=== PATIENT | female | born 1965 | race Caucasian/White ===

== ENCOUNTER 2023-03-09 16:22 | Emergency (ER) | payer MEDICARE ==
[~2023-03-09] VITALS: Ht 170.2 cm; Wt 75.7 kg
[2023-03-09 17:15] VITALS: BP 128/82
[2023-03-09 17:30] VITALS: BP 137/75
[2023-03-09 18:00] VITALS: BP 132/75
[2023-03-09 18:38] VITALS: BP 132/75
[2023-03-09] MEDS ORDERED: BACTRIM DS1 TAB PO (18:40)
== END 2023-03-09 18:42 | disposition home or self-care (01) ==
LOC: ED 16:22
DX: L02.11 Cutaneous abscess of neck (principal); J44.9 Chronic obstructive pulmonary disease, unspecified

== ENCOUNTER 2023-06-28 02:55 | Emergency (ER) | payer MEDICARE, MEDICAID ==
[~2023-06-28] VITALS: Ht 170.2 cm; Wt 77.0 kg
[~2023-06-28 02:55] MED LIST: BACTRIM DS1 TAB PO
[2023-06-28 04:09] VITALS: BP 109/76
== END 2023-06-28 04:26 | disposition home or self-care (01) ==
LOC: ED 02:55
DX: J06.9 Acute upper respiratory infection, unspecified (principal); J44.9 Chronic obstructive pulmonary disease, unspecified; Z95.5 Presence of coronary angioplasty implant and graft; Z20.822 Contact with and (suspected) exposure to COVID-19

== ENCOUNTER 2023-09-11 20:12 | Emergency (ER) | payer MEDICARE, MEDICAID ==
[~2023-09-11] VITALS: Ht 170.2 cm; Wt 95.0 kg
[~2023-09-11 20:12] MED LIST changes: +CITALOPRAM20 MG PO; +DOXEPIN HCL50 MG PO; +HUMALOG100 MG/ML; +LISINOPRIL40 MG PO; +METOPROLOL SUCC50 MG PO; +NEURONTIN600 MG PO; +SIMVASTATIN40 MG PO; +SM ASPIRIN325 M1 PO; +VENTOLIN HFA108 MCG; +VICTOZA18 MG/3 ML SC
[2023-09-11 21:06] LABS: BASO% 0.2 % (0-3); EOS% 0.5 % (0-8); HEMATOCRIT 41.4 % (37.0-47.0); HEMOGLOBIN 14.2 g/dl (12.0-16.0); IMMATURE GRANULOCYTES 0.2 % (0.0-5.0); LYMPH% 34.1 % (15-41); MEAN CELL VOLUME 88.7 fL CALC (80.0-100.0); MEAN CORPUSCULAR HGB 30.4 pG CALC (26.0-32.0); MEAN CORPUSCULAR HGB CONC 34.3 g/dL CAL (32.0-36.0); MONO% 3.4 % (2-13); NEUT# 5.62 thou/uL (2.00-7.15); NEUT% 61.6 % (42-76); RED BLOOD COUNT 4.67 mill/uL (4.20-5.60); RED CELL DISTRI WIDTH 11.7 % (11.5-15.5)
[2023-09-11 21:34] LABS: ALBUMIN 4.3 g/dL (3.2-5.0); ALKALINE PHOSPHATASE 290 u/l (38-126); ANION GAP 20 (6-22 (CALC)); BILIRUBIN, TOTAL 0.4 mg/dL (0.02-1.3); BUN 32 mg/dL (7-17); BUN/CREATININE RATIO 28 (12-20 (CALC)); CARBON DIOXIDE 20 mmol/l (22-30); CHLORIDE 93 mmol/l (95-108); CREATININE 1.1 mg/dL (0.5-1.0); GFR FOR AFR.AMER. > 60 ML/MIN (>=60 (CALC)); GFR OTHER RACES 51 ML/MIN (>=60 (CALC)); SGOT/AST 61 u/l (14-36); SODIUM 130 mmol/l (137-146); TOTAL PROTEIN 8.1 g/dL (6.3-8.2)
[2023-09-11 22:04] VITALS: BP 137/80
[2023-09-11 22:58] VITALS: BP 137/80
== END 2023-09-11 22:58 | disposition home or self-care (01) ==
LOC: ED 20:12
PROVIDERS: Family Medicine
DX: J44.0 Chronic obstructive pulmonary disease with (acute) lower respiratory infection (principal); E11.65 Type 2 diabetes mellitus with hyperglycemia; Z95.5 Presence of coronary angioplasty implant and graft; Z79.4 Long term (current) use of insulin; Z20.822 Contact with and (suspected) exposure to COVID-19

== ENCOUNTER 2023-12-19 22:08 | Emergency (ER) | payer MEDICARE, MEDICAID ==
[~2023-12-19] VITALS: Ht 170.2 cm; Wt 98.0 kg
[2023-12-19] VITALS (7 sets, daily range): BP systolic 82–114; BP diastolic 45–76
[2023-12-19] MEDS ORDERED: DICLOFENAC SODIUM 75 MG/TAB PO ONE (22:35)
[2023-12-19] MEDS ORDERED: traMADol HCL 50 MG/TAB PO ONE (22:35)
[2023-12-19 23:13] LABS: BASO% 0.4 % (0-3); HEMATOCRIT 38.8 % (37.0-47.0); HEMOGLOBIN 13.1 g/dl (12.0-16.0); IMMATURE GRANULOCYTES 0.4 % (0.0-5.0); MEAN CELL VOLUME 89.2 fL CALC (80.0-100.0); MEAN CORPUSCULAR HGB 30.1 pG CALC (26.0-32.0); MEAN CORPUSCULAR HGB CONC 33.8 g/dL CAL (32.0-36.0); MONO% 5.4 % (2-13); NEUT# 5.57 thou/uL (2.00-7.15); NEUT% 53.8 % (42-76); RED BLOOD COUNT 4.35 mill/uL (4.20-5.60); RED CELL DISTRI WIDTH 11.9 % (11.5-15.5)
[2023-12-19 23:28] LABS: ALBUMIN 4.4 g/dL (3.2-5.0); ALKALINE PHOSPHATASE 292 u/l (38-126); ANION GAP 14 (6-22 (CALC)); BILIRUBIN, TOTAL 0.6 mg/dL (0.02-1.3); BUN 16 mg/dL (7-17); BUN/CREATININE RATIO 15 (12-20 (CALC)); CARBON DIOXIDE 23 mmol/l (22-30); CHLORIDE 100 mmol/l (95-108); GFR FOR AFR.AMER. > 60 ML/MIN (>=60 (CALC)); GFR OTHER RACES 57 ML/MIN (>=60 (CALC)); POTASSIUM 3.8 mmol/l (3.5-5.1); SGOT/AST 225 u/l (14-36); SODIUM 134 mmol/l (137-146); TOTAL PROTEIN 7.6 g/dL (6.3-8.2)
[2023-12-20] VITALS: BP 79/49
[2023-12-20 00:04] VITALS: BP 82/50
[2023-12-20 00:06] VITALS: BP 85/52
[2023-12-20] MEDS ORDERED: TRAMADOL HCL50 MG PO (00:10)
[2023-12-20 00:24] VITALS: BP 85/52
== END 2023-12-20 00:45 | disposition home or self-care (01) ==
LOC: ED 22:08
PROVIDERS: Family Medicine
DX: M25.562 Pain in left knee (principal); M25.561 Pain in right knee; M25.552 Pain in left hip; M25.551 Pain in right hip; E11.65 Type 2 diabetes mellitus with hyperglycemia; J44.9 Chronic obstructive pulmonary disease, unspecified; I25.10 Atherosclerotic heart disease of native coronary artery without angina pectoris; F41.9 Anxiety disorder, unspecified; Z95.5 Presence of coronary angioplasty implant and graft; Z79.4 Long term (current) use of insulin; Z96.652 Presence of left artificial knee joint; Z20.822 Contact with and (suspected) exposure to COVID-19

== ENCOUNTER 2024-06-21 00:24 | Emergency (ER) | payer MEDICARE, MEDICAID ==
[~2024-06-21] VITALS: Ht 170.2 cm; Wt 86.3 kg
[2024-06-21] VITALS (11 sets, daily range): BP systolic 112–145; BP diastolic 56–80
[~2024-06-21 00:24] MED LIST changes: +ACETAMINOPHEN325 MG PO; +B-COMPLE6 PO; +BIOTIN MAXI10000 MCG PO; +COLLAGE2 PO; +D350 MCG PO; +HAIR/SKIN/NAILS1 CAP PO; +HUMULIN R500 UNIT/M IM; +KLONOPIN1 MG PO; +LEXAPRO20 MG PO; +MAGNESIUM500 M1 PO; +MELATONIN10 M1 PO; +METRONIDAZOLE500 MG PO; +MUPIROCIN2 % EX; +NITROSTAT0.4 MG SL; +OMNICEF300 MG PO; +ONDANSETRON4 MG PO; +OZEMPIC 8 MG/3M1 INJ IM; +PROTONIX40 M2 PO; +QUETIAPINE FUM400 MG PO; +SEROQUEL100 MG PO; +TRAMADOL HCL50 MG PO; +ZINC50 MG PO
[2024-06-21] MEDS ORDERED: KETOROLAC TROMETHAMINE 30 MG/ML SDV IM ONE (00:40)
[2024-06-21] MEDS ORDERED: oxyCODONE HCL 15 MG/TAB PO ONE (00:40)
== END 2024-06-21 03:00 | disposition home or self-care (01) ==
LOC: ED 00:24
DX: S70.01XA Contusion of right hip, initial encounter (principal); S86.911A Strain of unspecified muscle(s) and tendon(s) at lower leg level, right leg, initial encounter; E11.9 Type 2 diabetes mellitus without complications; J44.9 Chronic obstructive pulmonary disease, unspecified; G47.33 Obstructive sleep apnea (adult) (pediatric); E66.9 Obesity, unspecified; F41.9 Anxiety disorder, unspecified; I25.10 Atherosclerotic heart disease of native coronary artery without angina pectoris; W19.XXXA Unspecified fall, initial encounter; Z79.4 Long term (current) use of insulin; Z88.8 Allergy status to other drugs, medicaments and biological substances; Z79.85 Long-term (current) use of injectable non-insulin antidiabetic drugs; Z95.5 Presence of coronary angioplasty implant and graft; Z96.641 Presence of right artificial hip joint

== ENCOUNTER 2024-06-22 13:41 | Observation (INO) | payer MEDICARE, MEDICAID ==
[~2024-06-22] VITALS: Ht 170.2 cm; Wt 98.4 kg
[2024-06-22] VITALS (45 sets, daily range): BP systolic 78–132; BP diastolic 28–85
[~2024-06-22 13:41] MED LIST changes: +LIDOCAINE HCL 2% 2ML SDV IV ONE; +PROPOFOL 200 MG/20 ML VIAL IV ONE
[2024-06-22] MEDS ORDERED: MORPHINE SULFATE 4 MG/ML VIAL IM ONE (13:50)
[2024-06-22] MEDS ORDERED: SODIUM CHLORIDE 0.9% 1,000 ML IV ONE (14:50)
[2024-06-22] MEDS ORDERED: MAGNESIUM HYDROXIDE 30 ML UDC PO PRN (16:35)
[2024-06-22] MEDS ORDERED: ACETAMINOPHEN 325 MG/TAB PO PRN (16:35)
[2024-06-22] MEDS ORDERED: MORPHINE SULFATE 4 MG/ML VIAL IV PRN (16:40)
[2024-06-22] MEDS ORDERED: clonazePAM 1 MG/TAB PO PRN (16:40)
[2024-06-22] MEDS ORDERED: INSULIN LISPRO 100 UNITS/ML ML SC SCH ×2 (17:00)
[2024-06-22 18:34] LABS: MEAN CELL VOLUME 94.5 fL CALC (80.0-100.0); MEAN CORPUSCULAR HGB 28.7 pG CALC (26.0-32.0); MEAN CORPUSCULAR HGB CONC 30.4 g/dL CAL (32.0-36.0); RED BLOOD COUNT 3.27 mill/uL (4.20-5.60); RED CELL DISTRI WIDTH 14.7 % (11.5-15.5)
[2024-06-22 18:35] LABS: HEMATOCRIT 30.9 % (37.0-47.0); HEMOGLOBIN 9.4 g/dl (12.0-16.0)
[2024-06-22] MEDS ORDERED: SODIUM CHLORIDE 0.9% 1,000 ML IV PRN (18:50)
[2024-06-22 18:56] LABS: POTASSIUM 3.8 mmol/l (3.5-5.1)
[2024-06-22] MEDS ORDERED: DOXEPIN HCL PO SCH ×2 (21:00→22:30)
[2024-06-22] MEDS ORDERED: ENOXAPARIN SODIUM 40 MG/0.4 ML SYR SC SCH (21:00)
[2024-06-22] MEDS ORDERED: INSULIN DETEMIR 100 UNITS/ML SC SCH (21:00)
[2024-06-22] MEDS ORDERED: QUEtiapine FUMERATE 100 MG/TAB PO SCH (21:00)
[2024-06-22] MEDS ORDERED: GABAPENTIN 300 MG/CAP PO SCH (21:00)
[2024-06-23] VITALS (7 sets, daily range): BP systolic 105–163; BP diastolic 49–82
[2024-06-23 05:31] LABS: BASO% 0.4 % (0-3); EOS% 6.9 % (0-8); HEMATOCRIT 28.6 % (37.0-47.0); HEMOGLOBIN 8.9 g/dl (12.0-16.0); IMMATURE GRANULOCYTES 0.2 % (0.0-5.0); LYMPH% 47.4 % (15-41); MEAN CELL VOLUME 93.8 fL CALC (80.0-100.0); MEAN CORPUSCULAR HGB 29.2 pG CALC (26.0-32.0); MEAN CORPUSCULAR HGB CONC 31.1 g/dL CAL (32.0-36.0); MONO% 5.5 % (2-13); NEUT# 2.26 thou/uL (2.00-7.15); NEUT% 39.6 % (42-76); RED BLOOD COUNT 3.05 mill/uL (4.20-5.60); RED CELL DISTRI WIDTH 14.6 % (11.5-15.5)
[2024-06-23 05:58] LABS: BILIRUBIN, TOTAL 0.4 mg/dL (0.02-1.3); CREATININE 0.9 mg/dL (0.5-1.0); MAGNESIUM 1.6 mg/dL (1.6-2.3); POTASSIUM 3.6 mmol/l (3.5-5.1)
[2024-06-23 06:04] LABS: ALBUMIN 3.2 g/dL (3.2-5.0); TOTAL PROTEIN 6.1 g/dL (6.3-8.2)
[2024-06-23] MEDS ORDERED: PANTOPRAZOLE SODIUM Sesquihydr 40 MG/TAB PO SCH (09:00)
[2024-06-23] MEDS ORDERED: LISINOPRIL 20 MG/TAB PO SCH (09:00)
[2024-06-23] MEDS ORDERED: QUEtiapine FUMERATE 100 MG/TAB PO SCH ×3 (09:00→21:00)
[2024-06-23] MEDS ORDERED: METOPROLOL SUCCINATE 25 MG/TAB-TOPROL XL PO SCH (09:00)
[2024-06-23] MEDS ORDERED: KETOROLAC TROMETHAMINE 30 MG/ML SDV IV PRN (11:15)
[2024-06-23] MEDS ORDERED: DOXEPIN HCL PO SCH (21:00)
[2024-06-24 04:00] VITALS: BP 137/77
[2024-06-24 06:38] VITALS: BP 147/74
[2024-06-24 07:01] VITALS: BP 147/74
[2024-06-24 08:28] LABS: BASO% 0.4 % (0-3); EOS% 6.7 % (0-8); HEMATOCRIT 29.7 % (37.0-47.0); HEMOGLOBIN 9.4 g/dl (12.0-16.0); IMMATURE GRANULOCYTES 0.2 % (0.0-5.0); LYMPH% 42.5 % (15-41); MEAN CELL VOLUME 92.2 fL CALC (80.0-100.0); MEAN CORPUSCULAR HGB 29.2 pG CALC (26.0-32.0); MEAN CORPUSCULAR HGB CONC 31.6 g/dL CAL (32.0-36.0); MONO% 5.9 % (2-13); NEUT# 2.18 thou/uL (2.00-7.15); NEUT% 44.3 % (42-76); RED BLOOD COUNT 3.22 mill/uL (4.20-5.60); RED CELL DISTRI WIDTH 14.4 % (11.5-15.5)
[2024-06-24 08:53] LABS: ALBUMIN 3.2 g/dL (3.2-5.0); BILIRUBIN, TOTAL 0.3 mg/dL (0.02-1.3); CREATININE 0.8 mg/dL (0.5-1.0); MAGNESIUM 1.4 mg/dL (1.6-2.3); POTASSIUM 3.9 mmol/l (3.5-5.1); TOTAL PROTEIN 6.1 g/dL (6.3-8.2)
[2024-06-24] MEDS ORDERED: MAGNESIUM SULFATE HEPTAHYDRATE 50 ML IV SCH (10:00)
== END 2024-06-24 14:13 | disposition home health service (06) ==
LOC: ED 13:41 → ED-I 13:55 → ED 16:29 → MS2 16:30 → UNDODEPER 06-23 20:58 → MS2 06-24 14:13
PROVIDERS: Nurse Practitioner Family; ADMIT Student in an Organized Health Care Education/Training Program; ATTEND Student in an Organized Health Care Education/Training Program
PROC: 0SWRXJZ Revision of Synthetic Substitute in Right Hip Joint, Femoral Surface, External Approach (ICD-10-PCS; principal; 2024-06-22)
DX: T84.020A Dislocation of internal right hip prosthesis, initial encounter (principal); S70.01XA Contusion of right hip, initial encounter; I10 Essential (primary) hypertension; E11.9 Type 2 diabetes mellitus without complications; J44.9 Chronic obstructive pulmonary disease, unspecified; I25.10 Atherosclerotic heart disease of native coronary artery without angina pectoris; G47.33 Obstructive sleep apnea (adult) (pediatric); E66.9 Obesity, unspecified; F41.9 Anxiety disorder, unspecified; W18.39XA Other fall on same level, initial encounter; Y92.009 Unspecified place in unspecified non-institutional (private) residence as the place of occurrence of the external cause; Z91.81 History of falling; Z88.8 Allergy status to other drugs, medicaments and biological substances; Z95.5 Presence of coronary angioplasty implant and graft; Z79.4 Long term (current) use of insulin; Z79.85 Long-term (current) use of injectable non-insulin antidiabetic drugs; Z20.822 Contact with and (suspected) exposure to COVID-19
CPT/HCPCS: J1650; J3475

== ENCOUNTER 2024-07-19 09:56 | Observation (INO) | payer MEDICARE, MEDICAID ==
[~2024-07-19] VITALS: Ht 170.2 cm; Wt 100.0 kg
[2024-07-19] VITALS (44 sets, daily range): BP systolic 99–147; BP diastolic 50–115
[~2024-07-19 09:56] MED LIST changes: -LIDOCAINE HCL 2% 2ML SDV IV ONE; -PROPOFOL 200 MG/20 ML VIAL IV ONE
[2024-07-19] MEDS ORDERED: ONDANSETRON HCl 4 MG/2 ML SDV IV ONE (10:00)
[2024-07-19] MEDS ORDERED: SODIUM CHLORIDE 0.9% 1,000 ML IV ONE (10:00)
[2024-07-19] MEDS ORDERED: MORPHINE SULFATE 4 MG/ML VIAL IV ONE (10:00)
[2024-07-19] MEDS ORDERED: HYDROmorphone HCL 2 MG/AMP IV ONE (10:40)
[2024-07-19 10:48] LABS: BASO% 0.5 % (0-3); HEMATOCRIT 34.2 % (37.0-47.0); HEMOGLOBIN 10.8 g/dl (12.0-16.0); IMMATURE GRANULOCYTES 0.2 % (0.0-5.0); LYMPH% 32.1 % (15-41); MEAN CELL VOLUME 87.5 fL CALC (80.0-100.0); MEAN CORPUSCULAR HGB 27.6 pG CALC (26.0-32.0); MEAN CORPUSCULAR HGB CONC 31.6 g/dL CAL (32.0-36.0); MONO% 5.3 % (2-13); NEUT# 3.96 thou/uL (2.00-7.15); NEUT% 59.9 % (42-76); RED BLOOD COUNT 3.91 mill/uL (4.20-5.60)
[2024-07-19 11:01] LABS: BILIRUBIN, TOTAL 0.2 mg/dL (0.02-1.3); CREATININE 0.9 mg/dL (0.5-1.0); POTASSIUM 3.6 mmol/l (3.5-5.1); TOTAL PROTEIN 7.2 g/dL (6.3-8.2)
[2024-07-19 11:04] LABS: ALBUMIN 4.1 g/dL (3.2-5.0)
[2024-07-19] MEDS ORDERED: LIDOCAINE HCL 2% 2ML SDV IV ONE (11:59)
[2024-07-19] MEDS ORDERED: PROPOFOL 200 MG/20 ML VIAL IV ONE (11:59)
[2024-07-19] MEDS ORDERED: MAGNESIUM HYDROXIDE 30 ML UDC PO PRN (12:10)
[2024-07-19] MEDS ORDERED: SODIUM CHLORIDE 0.9% 1,000 ML IV PRN (12:10)
[2024-07-19] MEDS ORDERED: oxyCODONE 5MG/ ACETAMINOPHEN 325MG TAB PO PRN (15:45)
[2024-07-19] MEDS ORDERED: HYDROmorphone HCL 2 MG/AMP IV PRN (15:45)
[2024-07-19] MEDS ORDERED: clonazePAM 1 MG/TAB PO PRN (15:45)
[2024-07-19] MEDS ORDERED: INSULIN LISPRO 100 UNITS/ML ML SC SCH (17:00)
[2024-07-19] MEDS ORDERED: DOXEPIN HCL PO SCH (21:00)
[2024-07-19] MEDS ORDERED: ENOXAPARIN SODIUM 40 MG/0.4 ML SYR SC SCH (21:00)
[2024-07-19] MEDS ORDERED: ATORVASTATIN CALCIUM 20 MG/TAB PO SCH (21:00)
[2024-07-19] MEDS ORDERED: QUEtiapine FUMERATE 100 MG/TAB PO SCH (21:00)
[2024-07-20] MEDS ORDERED: LISINOPRIL 20 MG/TAB PO SCH (09:00)
[2024-07-20] MEDS ORDERED: ASPIRIN 325 MG/TAB PO SCH (09:00)
[2024-07-20] MEDS ORDERED: ESCITALOPRAM 10 MG/TAB PO SCH (09:00)
[2024-07-20] MEDS ORDERED: METOPROLOL SUCCINATE 50 MG/TAB PO SCH (09:00)
[2024-07-20] MEDS ORDERED: QUEtiapine FUMERATE 100 MG/TAB PO SCH (09:00)
== END 2024-07-19 15:30 | disposition left against medical advice (07) ==
LOC: ED 09:56 → ED-I 11:16 → ED 11:46 → MS2 11:47
PROVIDERS: Family Medicine; ADMIT Internal Medicine; ATTEND Internal Medicine
PROC: 0SWRXJZ Revision of Synthetic Substitute in Right Hip Joint, Femoral Surface, External Approach (ICD-10-PCS; principal; 2024-07-19)
DX: T84.020A Dislocation of internal right hip prosthesis, initial encounter (principal); I10 Essential (primary) hypertension; E11.9 Type 2 diabetes mellitus without complications; I25.10 Atherosclerotic heart disease of native coronary artery without angina pectoris; J44.9 Chronic obstructive pulmonary disease, unspecified; F41.9 Anxiety disorder, unspecified; E66.9 Obesity, unspecified; Y83.1 Surgical operation with implant of artificial internal device as the cause of abnormal reaction of the patient, or of later complication, without mention of misadventure at the time of the procedure; Y92.009 Unspecified place in unspecified non-institutional (private) residence as the place of occurrence of the external cause; Z86.73 Personal history of transient ischemic attack (TIA), and cerebral infarction without residual deficits; Z95.5 Presence of coronary angioplasty implant and graft; Z79.85 Long-term (current) use of injectable non-insulin antidiabetic drugs; Z79.4 Long term (current) use of insulin

== ENCOUNTER 2024-07-27 13:14 | Emergency (ER) | payer MEDICARE, MEDICAID ==
[2024-07-27] VITALS (22 sets, daily range): BP systolic 112–144; BP diastolic 50–106
[~2024-07-27] VITALS: Ht 170.2 cm; Wt 99.7 kg
[2024-07-27] MEDS ORDERED: SODIUM CHLORIDE 0.9% 1,000 ML IV ONE (15:00)
[2024-07-27] MEDS ORDERED: TRAMADOL HYDROC50 M1 PO (15:25)
[2024-07-27] MEDS ORDERED: PROPOFOL 200 MG/20 ML VIAL IV ONE (15:50)
[2024-07-27] MEDS ORDERED: MORPHINE SULFATE 4 MG/ML VIAL IV ONE ×3 (16:25→16:45)
== END 2024-07-27 18:39 | disposition home or self-care (01) ==
LOC: ED 13:14
PROC: 0SWRXJZ Revision of Synthetic Substitute in Right Hip Joint, Femoral Surface, External Approach (ICD-10-PCS; principal; 2024-07-27)
DX: T84.020A Dislocation of internal right hip prosthesis, initial encounter (principal); I25.10 Atherosclerotic heart disease of native coronary artery without angina pectoris; E11.9 Type 2 diabetes mellitus without complications; J44.9 Chronic obstructive pulmonary disease, unspecified; F41.9 Anxiety disorder, unspecified; Y83.1 Surgical operation with implant of artificial internal device as the cause of abnormal reaction of the patient, or of later complication, without mention of misadventure at the time of the procedure; Z95.5 Presence of coronary angioplasty implant and graft; Z96.641 Presence of right artificial hip joint; Z86.73 Personal history of transient ischemic attack (TIA), and cerebral infarction without residual deficits; Z79.4 Long term (current) use of insulin; Z79.85 Long-term (current) use of injectable non-insulin antidiabetic drugs

== ENCOUNTER 2024-08-07 20:00 | Emergency (ER) | payer MEDICARE, MEDICAID ==
[~2024-08-07] VITALS: Ht 170.2 cm; Wt 100.0 kg
[2024-08-07] VITALS (7 sets, daily range): BP systolic 131–165; BP diastolic 62–110
[~2024-08-07 20:00] MED LIST changes: +TRAMADOL HYDROC50 M1 PO
[2024-08-07] MEDS ORDERED: SODIUM CHLORIDE 0.9% 1,000 ML IV STA (20:21)
[2024-08-07] MEDS ORDERED: Pantoprazole Sodium 40 MG VIAL (Protonix) IV STA (20:21)
[2024-08-07] MEDS ORDERED: PROMETHAZINE HCL 25 MG/ML AMP IV STA (20:21)
[2024-08-07 20:33] LABS: BASO% 0.7 % (0-3); HEMATOCRIT 37.3 % (37.0-47.0); HEMOGLOBIN 11.4 g/dl (12.0-16.0); IMMATURE GRANULOCYTES 0.9 % (0.0-5.0); LYMPH% 25.9 % (15-41); MEAN CELL VOLUME 86.7 fL CALC (80.0-100.0); MEAN CORPUSCULAR HGB 26.5 pG CALC (26.0-32.0); MEAN CORPUSCULAR HGB CONC 30.6 g/dL CAL (32.0-36.0); MONO% 12.2 % (2-13); NEUT# 2.72 thou/uL (2.00-7.15); NEUT% 60.3 % (42-76); RED BLOOD COUNT 4.3 mill/uL (4.20-5.60); RED CELL DISTRI WIDTH 12.9 % (11.5-15.5)
[2024-08-07 20:43] LABS: ALBUMIN 4.7 g/dL (3.2-5.0); ALKALINE PHOSPHATASE 206 u/l (38-126); ANION GAP 13 (6-22 (CALC)); BUN 9 mg/dL (8-23); BUN/CREATININE RATIO 12 (12-20 (CALC)); CARBON DIOXIDE 24 mmol/l (22-30); CHLORIDE 104 mmol/l (95-108); CREATININE 0.8 mg/dL (0.5-1.0); ESTIMATED GFR 84 ML/MIN (>=90 (CALC)); LIPASE 129 u/l (23-300); POTASSIUM 3.6 mmol/l (3.5-5.1); SODIUM 138 mmol/l (137-146); TOTAL PROTEIN 8.4 g/dL (6.3-8.2)
[2024-08-07 20:56] LABS: BILIRUBIN, TOTAL 0.6 mg/dL (0.02-1.3); SGOT/AST 79 u/l (9-36)
[2024-08-07 21:28] LABS: URINE BILIRUBIN - DIPSTICK Negative (NEGATIVE); URINE BLOOD DIPSTICK Trace-lysed (NEGATIVE); URINE GLUCOSE - DIPSTICK Negative (NEGATIVE); URINE KETONE Negative (NEGATIVE); URINE LEUK ESTERASE Negative (NEGATIVE); URINE NITRITE - DIPSTICK Negative (Negative); URINE PROTEIN - DIPSTICK 30 mg/dL (NEG-TRACE); URINE SPECIFIC GRAVITY 1.015
[2024-08-07 21:29] LABS: URINE COLOR Yellow
[2024-08-07 21:30] LABS: URINE RBC 0-2 RBC/hpf (0-5); URINE SQUAMOUS EPITHELIAL CELL FEW EPI/hpf (0-FEW); URINE WBC 0-2 WBC/hpf (0-5)
[2024-08-07] MEDS ORDERED: NEURONTIN600 MG PO (22:06)
[2024-08-07] MEDS ORDERED: PROTONIX40 M2 PO (22:06)
[2024-08-07] MEDS ORDERED: PROMETHAZINE HY25 M1 PO (22:14)
== END 2024-08-07 22:50 | disposition home or self-care (01) ==
LOC: ED 20:00
PROVIDERS: Emergency Medicine
DX: R11.2 Nausea with vomiting, unspecified (principal); R19.7 Diarrhea, unspecified; E11.9 Type 2 diabetes mellitus without complications; J44.9 Chronic obstructive pulmonary disease, unspecified; F41.9 Anxiety disorder, unspecified; Z86.73 Personal history of transient ischemic attack (TIA), and cerebral infarction without residual deficits; Z79.4 Long term (current) use of insulin
CPT/HCPCS: J2470

== ENCOUNTER 2025-01-13 07:52 | Emergency (ER) | payer MEDICARE, MEDICAID ==
[2025-01-13] VITALS (18 sets, daily range): BP systolic 89–142; BP diastolic 47–88
[~2025-01-13] VITALS: Ht 170.2 cm; Wt 97.0 kg
[~2025-01-13 07:52] MED LIST changes: +PROMETHAZINE HY25 M1 PO
[2025-01-13] MEDS ORDERED: IBUPROFEN 800 MG/TAB PO ONE (08:20)
[2025-01-13] MEDS ORDERED: MORPHINE SULFATE 4 MG/ML VIAL IV ONE (13:05)
== END 2025-01-13 13:21 ==
LOC: ED 07:52
DX: T84.020A Dislocation of internal right hip prosthesis, initial encounter (principal); E11.9 Type 2 diabetes mellitus without complications; J44.9 Chronic obstructive pulmonary disease, unspecified; F41.9 Anxiety disorder, unspecified; X50.0XXA Overexertion from strenuous movement or load, initial encounter; Z95.5 Presence of coronary angioplasty implant and graft; Z79.4 Long term (current) use of insulin